=== PATIENT | male | born 1990 | race American Indian/Alaskan Native ===

== ENCOUNTER 2016-08-05 17:35 | Emergency (ER) | payer MEDICAID ==
[2016-08-05 18:23] VITALS: BP 102/64
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
[2016-08-05] MEDS ORDERED: FLEXERIL PO ONE (19:55)
[2016-08-05] MEDS ORDERED: NORCO 5/325 PO ONE (19:55)
== END 2016-08-05 20:30 | disposition home or self-care (01) ==
LOC: ED 17:35
DX: M62.830 Muscle spasm of back (principal); M25.552 Pain in left hip; G44.319 Acute post-traumatic headache, not intractable; F31.9 Bipolar disorder, unspecified; F12.90 Cannabis use, unspecified, uncomplicated; F17.200 Nicotine dependence, unspecified, uncomplicated; V89.2XXA Person injured in unspecified motor-vehicle accident, traffic, initial encounter; Y93.89 Activity, other specified; Y99.9 Unspecified external cause status; Y92.410 Unspecified street and highway as the place of occurrence of the external cause
CPT/HCPCS: 99282

== ENCOUNTER 2017-01-01 16:54 | Emergency (ER) | payer MEDICAID ==
[2017-01-01 17:43] VITALS: BP 105/60
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
[2017-01-01] MEDS ORDERED: MOTRIN PO ONE (18:47)
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
--- NOTE | 2017-01-01 19:50 | Cat Scan Report ---
FINAL REPORT PROCEDURE: CT head without contrast. TECHNIQUE: Computerized tomography of the head was performed without contrast material. HISTORY: Headache. COMPARISON: No prior studies are available for comparison. FINDINGS: The ventricles are normal in size. The pepper matter and white matter appear normal. There are no mass lesions. There is no intracranial hemorrhage. The calvarium appears intact. The mastoid air cells and paranasal sinuses are clear as far as visualized. IMPRESSION: Normal study.
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
== END 2017-01-01 20:24 | disposition home or self-care (01) ==
LOC: ED 16:54
DX: S92.355A Nondisplaced fracture of fifth metatarsal bone, left foot, initial encounter for closed fracture (principal); S92.502A Displaced unspecified fracture of left lesser toe(s), initial encounter for closed fracture; E11.9 Type 2 diabetes mellitus without complications; F17.200 Nicotine dependence, unspecified, uncomplicated; W22.8XXA Striking against or struck by other objects, initial encounter; Y93.9 Activity, unspecified; Y92.9 Unspecified place or not applicable; Y99.9 Unspecified external cause status
CPT/HCPCS: 70450; 82962

== ENCOUNTER 2018-10-06 13:44 | Emergency (ER) | payer SELFPAY ==
[2018-10-06 13:58] VITALS: BP 108/67
[2018-10-06] MEDS ORDERED: BOOSTRIX IM ONE (13:58)
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
[2018-10-06] MEDS ORDERED: IBUPROFEN PO ONE (15:00)
[2018-10-06] MEDS ORDERED: AUGMENTIN 875 MG PO ONE (15:00)
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
== END 2018-10-06 15:12 | disposition home or self-care (01) ==
LOC: ED 13:44
DX: S00.81XA Abrasion of other part of head, initial encounter (principal); S10.91XA Abrasion of unspecified part of neck, initial encounter; F17.200 Nicotine dependence, unspecified, uncomplicated; E11.9 Type 2 diabetes mellitus without complications; F31.9 Bipolar disorder, unspecified; Z79.899 Other long term (current) drug therapy; X58.XXXA Exposure to other specified factors, initial encounter; Y93.89 Activity, other specified; Y92.89 Other specified places as the place of occurrence of the external cause; Y99.8 Other external cause status
CPT/HCPCS: 90471; 90715; 99282

== ENCOUNTER 2019-04-13 11:53 | Emergency (ER) | payer SELFPAY | END 2019-04-13 18:23 | disposition left against medical advice (07) | LOC: ED 11:53 | DX: Z53.21 Procedure and treatment not carried out due to patient leaving prior to being seen by health care provider (principal) ==